=== PATIENT | female | born 1980 | race Caucasian/White ===

== ENCOUNTER 2019-01-05 11:01 | Emergency (ER) | payer SELFPAY ==
[2019-01-05 11:09] VITALS: BP 123/59
--- NOTE | 2019-01-05 11:13 | ED Physician Documentation ---
History of Present Illness - Stated complaint Stated Complaint: RT ARM PX - Chief complaint Chief Complaint: Ext Problem - History obtained from History obtained from: Patient - Additonal information Additional information: Patient is a 38-year-old female, right-handed, presenting with over 2 years of right arm discomfort particularly in the shoulder without particular inciting incident, trauma, fall. 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 Patient reports limited range of motion at shoulder and believe she has decreased strength to the right hand, but no sensation changes. Patient denies swelling, erythema, rash or other skin changes. Patient states that she does not like to take medications and therefore has not tried ocbn-[id number] medications for this discomfort. Patient also does not feel physical therapy will help as she has tried some stretching at home. No other improving or worsening factors noted.Patient denies . Review of Systems Musculoskeletal: reports: Extremity pain Neurologic: reports: Focal weakness. 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 : None HEENT: None Psych: None Musculoskeletal: None Derm: None - Past Surgical History Past Surgical History: Yes /FIELD CANE SCALER: Tubal ligation - Present Medications Home Medications: Ambulatory Orders Medication Instructions Recorded Confirmed Aspirin/Acetaminophen/Caffeine PRN 10/10/13 10/10/13 [Excedrin Migraine Geltabs] HYDROcod/ACETAM 5/325 [Wiley 5/325] 1 - 2 ea PO Q6H PRN #15 tablet 03/24/16 - Allergies Allergies/Adverse Reactions: Allergies Allergy/AdvReac Type Severity Reaction Status Date / Time No Known Drug Allergies Allergy Verified 03/20/13 15:15 - Social History Does the pt smoke?: No Smoking Status: Never smoker Does the pt drink ETOH?: No Does the pt have substance abuse?: No - Immunizations Immunizations are current?: Yes PD ED PE NORMAL - Vitals Vital signs reviewed: Yes - General General: Alert and oriented X 3, No acute distress, Well developed/nourished - HEENT HEENT: Atraumatic, Moist mucous membranes - Neck Neck: Supple, no meningeal sign - Cardiac Cardiac: Strong equal pulses - Respiratory Respiratory: No respiratory distress - Derm Derm: Normal color, Warm and dry, No rash - Extremities Extremities: No deformity, No tenderness to palpate, No edema, Other (No palpable deformity or bony tenderness to right upper extremity. No objective changes in strength, sensation to right upper extremity. Mild reduction of abduction at right shoulder only.) - Neuro Neuro: Alert and oriented X 3, No motor deficit, No sensory deficit - Psych Psych: Normal mood, Normal affect Results - Vitals Vitals: Vital Signs - 24 hr 01/05/19 11:04 Temperature 36.7 C Heart Rate 95 Respiratory 16 Rate Blood Pressure 123/59 L O2 Saturation 100 Oxygen O2 Source Room air PD MEDICAL DECISION MAKING - ED course Complexity details: considered differential, d/w patient ED course: Patient presenting with several years of chronic right upper extremity pain possibly worsened by repetitive motions. Patient declines physical therapy and [id number] medication therapies. No new injury or trauma. Do not have high suspicion for bony abnormalities including dislocation or fracture. Do not feel patient requires x-rays at this time. Do not find evidence of gout, joint infection, other skin infection including cellulitis, lymphangitis, abscess. Do have concern for possible rotator cuff injury or biceps tendinitis. However, do not feel the patient is experiencing an emergent issue today and can otherwise be referred to a primary care physician and orthopedic surgery as an outpatient. Also discussed other supportive cares return precautions. Offered Toradol, which was given in the ED. Patient otherwise voices understanding and is comfortable with discharge plan. Departure - Departure Disposition: 01 Home, Self Care Clinical Impression: Pain of upper extremity Qualifiers: Laterality: right Qualified Code(s): M79.601 - Pain in right arm Condition: Good Instructions: ED Torn Rotator Cuff, ED Strain Muscle Ext Follow-Up: your,doctor [Other] - Within 3 Days Breanne Jackson MD [Provider Admit Priv/Credential] - Within 3 Days Comments: Recommend supportive cares and avoidance of repetitive motions. May use sling as needed for comfort, but did not leave in constantly as this can cause a stiff shoulder. Please establish primary care follow-up for further evaluation and po ssible referrals including physical therapy. May also contact orthopedic surgery for further evaluation particularly for tendon or ligamentous injury. Return to ED sooner if experience worsening symptoms or have other concerns.
[2019-01-05] MEDS ORDERED: KETOROLAC 60 MG/2 ML VIAL IM STA (11:22)
== END 2019-01-05 11:40 | disposition home or self-care (01) ==
LOC: ED 11:01
DX: M79.601 Pain in right arm (principal); M25.511 Pain in right shoulder
CPT/HCPCS: 96372; 99283; 99284

== ENCOUNTER 2019-01-11 07:33 | Outpatient (CLI) | payer SELFPAY | END 2019-01-11 07:34 | disposition short-term general hospital (02) | LOC: EMS 07:33 | PROVIDERS: ATTEND Surgery | DX: R09.89 Other specified symptoms and signs involving the circulatory and respiratory systems (principal); R60.0 Localized edema | CPT/HCPCS: A0425; A0429 ==